=== PATIENT | female | born 1960 | race Caucasian/White ===

== ENCOUNTER → 2020-10-20 | Outpatient (CLI) | payer MEDICARE, OTHER ==
[~2020-10-20] MED LIST: ANORO ELLIPTA1 EACH INH; ASPIRIN 325MG325 MG PO; DEXILANT60 MG PO; DURAGESIC1 EACH TD; ECOTRIN81 MG PO; ESTRADIOL-NORE1 EAC1 PO; GLUCOPHAGE1000 MG PO; HARD NAILS2500 MCG PO; IBUPROFEN800 MG PO; INVOKANA100 MG PO; JINTELI 1 MG-51 EACH PO; LISINOPRIL-HCT1 EAC1 PO; LOPRESSOR50 MG PO; LOVAZA1 GM PO; NEURONTIN400 MG PO; NORVASC 5 MG TAB5 MG PO; PLAVIX 75 MG TA75 MG PO; PRAVACHOL80 MG PO; PROZAC20 MG PO; REGLAN10 MG PO; RELAFEN 750 MG750 MG PO
== END ==
LOC: KOH-I 11:57
DX: S60.211A Contusion of right wrist, initial encounter (principal); M25.531 Pain in right wrist; X58.XXXA Exposure to other specified factors, initial encounter
CPT/HCPCS: 73110

== ENCOUNTER → 2020-12-29 | Outpatient (CLI) | payer MEDICARE, OTHER | LOC: MAMO 07:56 | DX: Z12.31 Encounter for screening mammogram for malignant neoplasm of breast (principal) | CPT/HCPCS: 77063; 77067 ==

== ENCOUNTER → 2021-02-06 | Outpatient (CLI) | payer MEDICARE, OTHER | LOC: KOH-I 14:26 | DX: M25.531 Pain in right wrist (principal) | CPT/HCPCS: 73110 ==

== ENCOUNTER → 2021-02-16 | Outpatient (CLI) | payer MEDICARE, OTHER | LOC: KOH-I 08:38 | DX: S63.591A Other specified sprain of right wrist, initial encounter (principal); S52.91XA Unspecified fracture of right forearm, initial encounter for closed fracture | CPT/HCPCS: 73221 ==

== ENCOUNTER → 2021-04-26 | Outpatient (CLI) | payer MEDICARE, OTHER | LOC: KOH-I 11:04 | DX: M47.22 Other spondylosis with radiculopathy, cervical region (principal); M50.10 Cervical disc disorder with radiculopathy, unspecified cervical region | CPT/HCPCS: 72050 ==

== ENCOUNTER → 2021-05-17 | Outpatient (CLI) | payer MEDICARE, OTHER | LOC: KOH-I 13:19 | DX: R29.2 Abnormal reflex (principal); R53.1 Weakness; M50.122 Cervical disc disorder at C5-C6 level with radiculopathy; M48.02 Spinal stenosis, cervical region; M25.78 Osteophyte, vertebrae | CPT/HCPCS: 72141 ==

== ENCOUNTER → 2021-07-27 | Outpatient (CLI) | payer MEDICARE, OTHER | LOC: KOH-I 14:15 | DX: F17.210 Nicotine dependence, cigarettes, uncomplicated (principal) | CPT/HCPCS: 71271 ==

== ENCOUNTER → 2021-11-12 | Outpatient (CLI) | payer MEDICARE, OTHER | LOC: KOH-I 12:00 | DX: M47.27 Other spondylosis with radiculopathy, lumbosacral region (principal) | CPT/HCPCS: 72100 ==

== ENCOUNTER → 2021-11-22 | Outpatient (CLI) | payer MEDICARE, OTHER | LOC: MRI 13:00 | DX: M51.16 Intervertebral disc disorders with radiculopathy, lumbar region (principal); M48.061 Spinal stenosis, lumbar region without neurogenic claudication; M47.26 Other spondylosis with radiculopathy, lumbar region; M47.27 Other spondylosis with radiculopathy, lumbosacral region | CPT/HCPCS: 36415; 72158; 82565; 84520; A9577 ==